=== PATIENT | female | born 1955 | race Two or more races ===

== ENCOUNTER 2023-01-24 14:06 | Emergency (ER) | payer OTHER ==
[~2023-01-24] VITALS: Ht 157.5 cm; Wt 47.2 kg
[2023-01-24 16:11] LABS: HEMOGLOBIN 13.5 g/dL (12.0-15.00); MEAN CELL VOLUME 90.9 fL (80.00-100.00); MEAN CORPUSCULAR HEMOGLOBIN 30.7 pg (27.00-32.0); MEAN CORPUSCULAR HGB CONC 33.7 g/dl (32.0-36.0); PLATELET COUNT 384 K/uL (150-450); RED CELL DISTRIBUTION WIDTH 12.5 % (11.5-14.5)
[2023-01-24 16:34] LABS: CALCIUM 9.1 mg/dL (8.5-10.1); CREATININE SERUM 0.68 mg/dL (0.55-1.02); GFR 86.57; POTASSIUM 3.81 mEq/L (3.5-5.1)
[2023-01-24 16:36] LABS: PH,URINE 6.5 (5.0-8.0); URINE APPEARANCE Clear; URINE BILIRRUBIN Negative (NEGATIVE); URINE BLOOD Negative; URINE COLOR Yellow; URINE EPITHELIAL CELLS 1.9 uL (0.0-38.8); URINE GLUCOSE Negative (NEGATIVE); URINE LEUKOCYTE Negative; URINE NITRATE Negative; URINE PROTEIN Negative (NEGATIVE); URINE RBC 4.4 uL (0.0-20.8); URINE UROBILINOGEN 0.2 E.U./dl
[2023-01-24 16:41] LABS: URINE BACTERIA 1.2 uL (0.0-1933); URINE WBC 0.4 uL (0.0-23.2)
== END 2023-01-24 17:26 ==
LOC: ER 14:06
PROVIDERS: Nurse Practitioner Family
DX: B34.9 Viral infection, unspecified (principal); Z20.822 Contact with and (suspected) exposure to COVID-19